=== PATIENT | female | born 1935 | race Caucasian/White ===

== ENCOUNTER → 2016-11-07 | Outpatient (CLI) | payer MEDICARE, OTHER ==
[~2016-11-07] MED LIST: AMBIEN 5MG TABLE5 MG PO; ASPIRIN 32325 MG/TAB PO; ASPIRIN E.C. 8181 MG PO; AVALOX PO; BETAXOLOL HCL 55 ML OP; CALCIUM 600600 M2 PO; CARAFATE 1GM1 G PO; CENTRUM SILVER1 CTB PO; COQ10150 MG PO; DARVOCET N 101 UDTAB PO; GLUCOSAMINE & C1 TER PO; IMDUR30 MG PO; METOPROLOL TART50 MG PO; MIRTAZAPINE7.5 MG PO; MOTRIN 200200 MG/TAB PO; NORVASC2.5 MG PO; PLAVIX 75MG TAB75 MG PO; PRAVACHOL10 MG PO; PREMARIN 0.60.625 M1 PO; PREMARIN0.45 MG PO; PRINZIDE 12.5 M1 TA1 PO; PROBIOTIC-SUNMARK; PROTONIX 40MG T40 MG PO; REFRESH TEARS 330 ML OP; SINGULAIR10 MG PO; SPIRIVA18 MCG IH; THE MEDICINE S200 M2 PO; TRAVATAN Z 2.52.5 ML OP; TYLENOL 8 HR PO; VENTOLIN0.09 MG IH; VERAPAMIL HCL180 MG PO; VIBRAMYCININJ PO; VITAMIN C500 MG PO; VITAMIN D1000 IU PO; XALATAN EYE DROPS OD; XARELTO15 MG PO; ZYRTEC10 MG PO; [UNRECOGNIZED DRUG - OTHER] PO
== END ==
LOC: COL.RAD 09:37
DX: L03.115 Cellulitis of right lower limb (principal)
CPT/HCPCS: A9503

== ENCOUNTER 2017-02-14 17:02 | Inpatient (IN) | payer MEDICARE, OTHER ==
[~2017-02-14] VITALS: Ht 165.1 cm; Wt 63.3 kg
[2017-02-14 17:25] LABS: ARTERIAL BLD GAS O2 SATURATION 98.7 % (92-100); ARTERIAL BLD GAS TCO2 CT 26.7; ARTERIAL BLOOD GAS BASE EXCESS -0.1 (-2-2); ARTERIAL BLOOD GAS HCO3 25.3 meq/L (22-26); ARTERIAL BLOOD GAS PHT 7.38 C (7.35-7.45); ARTERIAL BLOOD GAS PO2 170.9 mmHg (80-100); ARTERIAL BLOOD GAS PO2T 170.9 (80-100); ARTERIAL BLOOD GAS pH 7.38 (7.35-7.45); OXYHEMOGLOBIN 97.4 %
[2017-02-14 17:26] LABS: ALLEN TEST YES; ALLENS TEST RESULT PASS; ATS? YES
[2017-02-14 17:28] LABS: BASO # 0.1 (0.0-0.2); BASO % 0.6 % (0.0-2.0); EOS % 0.1 % (0-4.0); GRAN # 8.9 (1.4-6.5); GRAN % 81.9 % (42.2-75.2); HEMATOCRIT 40.9 % (37.0-47.0); HEMOGLOBIN 13.7 g/dl (12.5-16.0); LYMPH # 0.7 (1.2-3.4); LYMPH % 6.4 % (20.0-51.0); MEAN CELL VOLUME 93 fl (80.0-100.0); MEAN CORPUSCULAR HEMOGLOBIN 31 pg (27.0-31.0); MEAN CORPUSCULAR HGB CONC 34 g/dl (33.0-37.0); MEAN PLATELET VOLUME 9.8 fl (7.4-10.4); MONO # 1.1 (0.1-0.6); MONO % 10.1 % (1.7-9.3); PLATELET COUNT 274 K/mm3 (130-400); WHITE BLOOD COUNT 10.9 K/mm3 (4.8-10.8)
[2017-02-14 17:45] LABS: ADJUSTED CALCIUM 8.5 mg/dL (8.4-10.2); ALBUMIN 5.1 gm/dL (3.5-5.0); BILIRUBIN,TOTAL 0.7 mg/dL (0.0-1.0); CALCIUM 9.4 mg/dL (8.4-10.2); CREATININE, serum 0.6 mg/dL (0.52-1.25); POTASSIUM 4.3 mmol/L (3.4-5.0); TOTAL PROTEIN 8.2 gm/dL (6.4-8.2)
[2017-02-14 18:00] LABS: COLLECTION METHOD CLEAN CATCH
[2017-02-14 18:04] LABS: TROPONIN-I 0.131 ng/mL (0.000-0.034)
[2017-02-14 18:07] LABS: PH 6 (5-8); SQUAMOUS EPITHELIAL 0-2 /hpf; URINE APPEARANCE Clear; URINE BACTERIA None Seen /hpf; URINE BILIRUBIN Negative (NEGATIVE); URINE BLOOD Negative (NEGATIVE); URINE COLOR Yellow; URINE GLUCOSE Negative (NEGATIVE); URINE KETONE Trace (NEGATIVE); URINE LEUKOCYTE ESTERASE Negative (NEGATIVE); URINE PROTEIN(semi-quant) 3+ (NEGATIVE); URINE UROBILINOGEN Negative (NEGATIVE); URINE WBC 0-2 /hpf
[2017-02-14] MEDS ORDERED: TRAVATAN Z 2.52.5 ML OU (18:10)
[2017-02-14] MEDS ORDERED: IMDUR 30MG30 MG/TAB PO (18:11)
[2017-02-14] MEDS ORDERED: PROCARDIA20 MG PO (18:16)
[2017-02-14] MEDS ORDERED: 00186-0372-20 IH (18:20)
[2017-02-14] MEDS ORDERED: TAMIFLU 75MG75 MG PO (18:21)
[2017-02-14] MEDS ORDERED: ZITHROMAX Z PA250 MG PO (18:21)
[2017-02-14 20:42] VITALS: BP 152/51; PULSE 99; TEMP 98.1
[2017-02-15] VITALS (8 sets, daily range): BP systolic 110–188; BP diastolic 48–96; PULSE 78–95; TEMP 97.7–99.2
[2017-02-15 07:12] LABS: BASO % 0.3 % (0.0-2.0); GRAN # 6.3 (1.4-6.5); GRAN % 89.7 % (42.2-75.2); LYMPH # 0.5 (1.2-3.4); LYMPH % 7.5 % (20.0-51.0); MEAN CELL VOLUME 94 fl (80.0-100.0); MEAN CORPUSCULAR HEMOGLOBIN 31 pg (27.0-31.0); MEAN CORPUSCULAR HGB CONC 32 g/dl (33.0-37.0); MEAN PLATELET VOLUME 9.9 fl (7.4-10.4); MONO # 0.1 (0.1-0.6); MONO % 1.4 % (1.7-9.3); PLATELET COUNT 218 K/mm3 (130-400); RED BLOOD COUNT 3.92 M/mm3 (4.10-5.30); WHITE BLOOD COUNT 7.1 K/mm3 (4.8-10.8)
[2017-02-15 07:21] LABS: CALCIUM 8.2 mg/dL (8.4-10.2); CREATININE, serum 0.54 mg/dL (0.52-1.25); POTASSIUM 3.7 mmol/L (3.4-5.0)
[2017-02-15] MEDS ORDERED: PROCARDIA XL 3030 MG PO (15:13)
[2017-02-16 04:30] VITALS: BP 156/64; PULSE 63; TEMP 97.7
[2017-02-16 06:53] LABS: GRAN # 4.7 (1.4-6.5); LYMPH # 0.6 (1.2-3.4); LYMPH % 9.8 % (20.0-51.0); MEAN CELL VOLUME 96 fl (80.0-100.0); MEAN CORPUSCULAR HGB CONC 33 g/dl (33.0-37.0); MEAN PLATELET VOLUME 10.1 fl (7.4-10.4); MONO # 0.8 (0.1-0.6); MONO % 12.2 % (1.7-9.3); PLATELET COUNT 201 K/mm3 (130-400); RED BLOOD COUNT 3.53 M/mm3 (4.10-5.30); WHITE BLOOD COUNT 6.1 K/mm3 (4.8-10.8)
[2017-02-16 06:56] LABS: HEMATOCRIT 33.7 % (37.0-47.0); MEAN CORPUSCULAR HEMOGLOBIN 31 pg (27.0-31.0)
[2017-02-16 07:04] LABS: CALCIUM 8.1 mg/dL (8.4-10.2); CREATININE, serum 0.53 mg/dL (0.52-1.25); MAGNESIUM 1.7 mg/dL (1.6-2.3)
[2017-02-16 07:11] LABS: POTASSIUM 3.8 mmol/L (3.4-5.0)
[2017-02-16 07:15] LABS: TROPONIN-I 0.183 ng/mL (0.000-0.034)
[2017-02-16 07:54] VITALS: BP 151/62; PULSE 93; TEMP 97.6
[2017-02-16 12:22] VITALS: BP 146/68; PULSE 82; TEMP 97.7
[2017-02-16 16:16] VITALS: BP 150/44; PULSE 79; TEMP 98.1
[2017-02-16 20:30] VITALS: BP 130/80; PULSE 88; TEMP 98.4
[2017-02-17] VITALS (7 sets, daily range): BP systolic 148–160; BP diastolic 50–70; PULSE 65–86; TEMP 97.8–98.8
[2017-02-18] VITALS (7 sets, daily range): BP systolic 126–160; BP diastolic 46–74; PULSE 66–108; TEMP 97.5–98.2
[2017-02-19 04:17] VITALS: BP 175/55; PULSE 69; TEMP 98.4
[2017-02-19 08:57] VITALS: BP 121/81; PULSE 103; TEMP 97.8
[2017-02-19 12:24] VITALS: BP 153/58; PULSE 80; TEMP 97.9
[2017-02-19 13:24] LABS: EOS % 0.7 % (0-4.0); GRAN # 3.5 (1.4-6.5); GRAN % 61.8 % (42.2-75.2); LYMPH # 1.3 (1.2-3.4); LYMPH % 23.4 % (20.0-51.0); MEAN CELL VOLUME 92 fl (80.0-100.0); MEAN CORPUSCULAR HGB CONC 34 g/dl (33.0-37.0); MONO # 0.7 (0.1-0.6); MONO % 13.2 % (1.7-9.3); PLATELET COUNT 215 K/mm3 (130-400); RED BLOOD COUNT 3.63 M/mm3 (4.10-5.30); WHITE BLOOD COUNT 5.6 K/mm3 (4.8-10.8)
[2017-02-19 13:25] LABS: HEMATOCRIT 33.2 % (37.0-47.0); HEMOGLOBIN 11.2 g/dl (12.5-16.0); MEAN CORPUSCULAR HEMOGLOBIN 31 pg (27.0-31.0)
[2017-02-19 13:35] LABS: CALCIUM 9.1 mg/dL (8.4-10.2); CREATININE, serum 0.55 mg/dL (0.52-1.25)
[2017-02-19 15:47] VITALS: BP 169/55; PULSE 72; TEMP 97.8
[2017-02-19 20:53] VITALS: BP 165/62; PULSE 85; TEMP 97.8
[2017-02-20 00:42] VITALS: BP 132/45; PULSE 62; TEMP 97.8
[2017-02-20 04:17] VITALS: BP 147/58; PULSE 72; TEMP 97.9
[2017-02-20 07:33] LABS: CALCIUM 8.8 mg/dL (8.4-10.2); CREATININE, serum 0.5 mg/dL (0.52-1.25); MAGNESIUM 1.8 mg/dL (1.6-2.3); POTASSIUM 3.6 mmol/L (3.4-5.0)
[2017-02-20 08:01] LABS: MEAN CELL VOLUME 91 fl (80.0-100.0); MEAN CORPUSCULAR HGB CONC 34 g/dl (33.0-37.0); MEAN PLATELET VOLUME 10.5 fl (7.4-10.4); PLATELET COUNT 230 K/mm3 (130-400); RED BLOOD COUNT 3.57 M/mm3 (4.10-5.30); WHITE BLOOD COUNT 4.9 K/mm3 (4.8-10.8)
[2017-02-20 08:06] LABS: HEMATOCRIT 32.5 % (37.0-47.0); MEAN CORPUSCULAR HEMOGLOBIN 31 pg (27.0-31.0)
[2017-02-20 08:07] LABS: ADD PATHOLOGY DIFF REVIEW NO
[2017-02-20 08:49] VITALS: BP 137/58; PULSE 92; TEMP 97.9
[2017-02-20 08:49] LABS: BAND 6 % (0-10); LYMPHOCYTE 22 % (20.0-51.0); METAMYELOCYTE 1 % (0-0); NEUTROPHILS 64 % (42.0-75.2); PLATELET ESTIMATE NORMAL (NORMAL); TOTAL CELLS COUNTED 100
[2017-02-20] MEDS ORDERED: NICODERM C14 MG/PATC TD (09:16)
[2017-02-20] MEDS ORDERED: IPRATROPIUM BROM3 M1 IH (09:32)
[2017-02-20] MEDS ORDERED: PROAIR HFA0.09 MG/AC IH (10:38)
== END 2017-02-20 12:00 | disposition swing bed (61) | DRG 193 ==
LOC: COL.ER 17:02 → MEDICAL 18:42
PROVIDERS: Family Medicine; Nurse Practitioner; Nurse Practitioner Family; Physician Assistant
DX: J10.1 Influenza due to other identified influenza virus with other respiratory manifestations (principal); I21.A1 Myocardial infarction type 2; J44.1 Chronic obstructive pulmonary disease with (acute) exacerbation; I10 Essential (primary) hypertension; I25.10 Atherosclerotic heart disease of native coronary artery without angina pectoris; F17.210 Nicotine dependence, cigarettes, uncomplicated
CPT/HCPCS: 99223; 99223-AI; 99232-AI; 99233-AI; 99239; J1650; J2060; J2930; J3475; J7030; J7512

== ENCOUNTER → 2017-07-30 | Outpatient (CLI) | payer MEDICARE, OTHER ==
[~2017-07-30] MED LIST changes: +00186-0372-20 IH; +IMDUR 30MG30 MG/TAB PO; +IPRATROPIUM BROM3 M1 IH; +NICODERM C14 MG/PATC TD; +PROAIR HFA0.09 MG/AC IH; +PROCARDIA XL 3030 MG PO; +PROCARDIA20 MG PO; +TAMIFLU 75MG75 MG PO; +TRAVATAN Z 2.52.5 ML OU; +ZITHROMAX Z PA250 MG PO
== END ==
LOC: COL.VAS 09:00
DX: I34.0 Nonrheumatic mitral (valve) insufficiency (principal)

== ENCOUNTER → 2018-04-11 | Outpatient (CLI) | payer MEDICARE, OTHER | LOC: COL.RAD 09:01 | DX: M86.8X7 Other osteomyelitis, ankle and foot (principal); L03.115 Cellulitis of right lower limb | CPT/HCPCS: A9503 ==

== ENCOUNTER 2018-05-16 05:30 | Day surgery (SDC) | payer MEDICARE, OTHER ==
[~2018-05-16] VITALS: Ht 160 cm; Wt 75.5 kg
[2018-05-16] VITALS (7 sets, daily range): BP systolic 129–178; BP diastolic 45–61; PULSE 56–66; TEMP 97.4–98
[~2018-05-16 05:30] MED LIST changes: -IMDUR30 MG PO; +LOPRESSOR 550 MG/TAB PO; -METOPROLOL TART50 MG PO; +ZYRTEC 10MG10 MG PO; -ZYRTEC10 MG PO
[2018-05-16] MEDS ORDERED: CALCIUM CARBON650 M2 PO (06:16)
[2018-05-16] MEDS ORDERED: TYLENOL 8 HR PO (06:16)
[2018-05-16] MEDS ORDERED: XALATAN EYE DROPS OD (06:17)
[2018-05-16] MEDS ORDERED: CATAPRES 0.1MG0.1 MG PO (06:17)
[2018-05-16] MEDS ORDERED: CYMBALTA 20MG20 MG PO (06:18)
[2018-05-16] MEDS ORDERED: ANTIVERT 25MG25 MG PO (06:18)
[2018-05-16] MEDS ORDERED: LYRICA 50MG CAP50 MG PO (06:18)
[2018-05-16] MEDS ORDERED: ROXICODONE 55 MG/TAB PO (06:19)
--- NOTE | 2018-05-16 06:40 | NUR ---
Patient to PACU for block with ZOO CARETAKER at this time.
[2018-05-16 06:44] LABS: CALCIUM 9.7 mg/dL (8.4-10.2); CREATININE, serum 0.84 mg/dL (0.52-1.25); POTASSIUM 4.4 mmol/L (3.4-5.0)
--- NOTE | 2018-05-16 08:50 | NUR ---
Pt arrived to the floor from OR. Received report from Luis with anesthesia. Pt is alert and oriented with no right ankle pain at this time. VSS and at bedside. Report given to MARVIN Guerra
--- NOTE | 2018-05-16 09:00 | NUR ---
Pt AAOx4, RASS = -1, at bedside, vascular check within normal limits bilateral toes. Pt states chronic decreased sensation in lower extremity and feet, Left extremity intact, sensation in Right lower extremity below ankle absent - will continue to monitor. Pt tolerating fluids and Jell-O without N/V. 0918: RASS=0 Call light within reach, no complaints at this time.
--- NOTE | 2018-05-16 14:30 | NUR ---
Assisted pt to the bedside commode. She was not able to keep weight off her right foot. There was some drainage that did come through the dressing and celia. Reinforced with an ABD and celia wrap. Pain medication also given at this time. No other needs, will continue to monitor.
--- NOTE | 2018-05-16 20:38 | NUR ---
Patient up in chair at bedside. Has right foot elevated on pillows, dressing to right foot dry and intact, celia wrap securing. Has SL to right hand without redness or swelling. Having pain to right foot and back, 10/04. Medicated with Oxycodone 5mg po now as well as her HS meds. Patient is to be non weight bearing on the right. Will monitor for changes.
--- NOTE | 2018-05-16 23:00 | NUR ---
Patient uses BSC, voids and assisted to bed with one and gait belt. Rt leg elevated on pillows.
[2018-05-17 00:01] VITALS: BP 130/43; BP 150/53; PULSE 52; PULSE 70; TEMP 97.9; TEMP 99.8
[2018-05-17 04:19] VITALS: BP 122/41; PULSE 55; TEMP 98.3
--- NOTE | 2018-05-17 05:30 | NUR ---
Patient was disoriented, ambulated to bathroom, voided on commode and on the floor on her own. Assisted back to bed with walker and one assist. Dressing to right foot remains dry and intact.
--- NOTE | 2018-05-17 08:20 | NUR ---
Patient called out to nurses station states pain is 9/10 to right ankle. Medications administered per orders. Patient alert and oriented x3. Shift assessment complete. Dressing to right foot is CDI. Denies further needs at this time.
[2018-05-17 08:25] VITALS: BP 131/48; PULSE 59; TEMP 97
--- NOTE | 2018-05-17 09:15 | NUR ---
Patient called out to nurses station, States pain still 9/10 with no relief from previous dose of pain meds. Administered second dose of oxycodone.
--- NOTE | 2018-05-17 10:41 | NUR ---
Contacted Maria PEREZ. Patient continues to state no pain relief after second dose of pain medication. Maria will see patient.
[2018-05-17 12:45] VITALS: BP 119/68; PULSE 63; TEMP 98.2
[2018-05-17 16:51] VITALS: BP 149/44; PULSE 95; TEMP 98
--- NOTE | 2018-05-17 17:50 | NUR ---
Patient up in chair throughout most of the day. Acewrap to RLE is CDI. Denies pain or further needs at this time. Will report off to night time nanny.
--- NOTE | 2018-05-17 19:00 | NUR ---
Patient assisted to BSC with one assist and walker. Transfers fair. Has dressing with splint to right foot, D/I. SL to right hand without redness or swelling. Remains up in chair with foot elevated.
[2018-05-17 19:58] VITALS: BP 168/74; PULSE 55; TEMP 97.7
--- NOTE | 2018-05-17 20:40 | NUR ---
Patient reports pain to right ankle 10/10. Patient squirming in chair, unable to keep right leg elevated on pillows. Medicated with [place] 7.5mg 2 tabs po now with other HS meds. Assisted to BSC, voids and back to chair at bedside. Elevated right leg on pillow. Call light within reach.
[2018-05-18] VITALS: BP 144/55; PULSE 65; TEMP 97.7
--- NOTE | 2018-05-18 00:05 | NUR ---
Medicated with Oxycodone 10mg po for pain 10/04 to rt ankle. Assisted to bed after using BSC.
[2018-05-18 04:00] VITALS: BP 130/84; PULSE 84; TEMP 98.1
--- NOTE | 2018-05-18 04:00 | NUR ---
Assisted to BSC, voids and back to bed.
--- NOTE | 2018-05-18 06:37 | NUR ---
Up in chair at bedside, takes coffee this AM for bowel regimen.
--- NOTE | 2018-05-18 07:21 | NUR ---
Report received from MARVIN Pérez. Patient woke up and spoke with this nurse, but fell asleep while talking. Call light in place.
[2018-05-18 07:58] VITALS: BP 131/45; PULSE 48; TEMP 97.5
--- NOTE | 2018-05-18 09:41 | NUR ---
Patient sitting in recliner upon assessment. Awake and alert. Patient c/o pain to right ankle. Wants pain medication with breakfast and her morning meds. No further needs.
--- NOTE | 2018-05-18 12:48 | NUR ---
Patient discharge instructions given at 1100 this morning. She stated she wasn't feeling well and that she was dizzy and nauseous. Patient assisted into the restroom. Oxygen level at 92% on RA. Full set of vitals can be found in patient chart. Patient assisted back to her chair and continued to complain of nausea. [place], sprite, and crackers given. Stated no relief and that she didn't want to go home "feeling like this." This nurse let her rest in the recliner until 1225 when she called to use the restroom. Patient assisted to the commode, then stated she still didn't feel well. This nurse obtained a wheelchair and patient was compliant with being discharged. Patient assisted to personal vehicle with wheelchair and personal belongings with spouse and surgical staff at 1245.
== END 2018-05-18 12:52 | disposition home or self-care (01) ==
LOC: SDCO 05:30 → SURG 08:50 → SDCO 05-18 12:52
PROVIDERS: Nurse Anesthetist, Certified Registered
DX: L97.519 Non-pressure chronic ulcer of other part of right foot with unspecified severity (principal); I73.9 Peripheral vascular disease, unspecified; M19.90 Unspecified osteoarthritis, unspecified site; J44.9 Chronic obstructive pulmonary disease, unspecified; I25.10 Atherosclerotic heart disease of native coronary artery without angina pectoris; E78.00 Pure hypercholesterolemia, unspecified; G43.909 Migraine, unspecified, not intractable, without status migrainosus; Z88.2 Allergy status to sulfonamides; Z88.8 Allergy status to other drugs, medicaments and biological substances; Z91.030 Bee allergy status; Z85.828 Personal history of other malignant neoplasm of skin; Z90.710 Acquired absence of both cervix and uterus; Z87.891 Personal history of nicotine dependence; Z82.49 Family history of ischemic heart disease and other diseases of the circulatory system; Z82.61 Family history of arthritis; Z80.9 Family history of malignant neoplasm, unspecified; Z88.1 Allergy status to other antibiotic agents; Z88.5 Allergy status to narcotic agent; Z88.6 Allergy status to analgesic agent
CPT/HCPCS: OP; A9284; J0690; J2250; J2405; J2704; J3010; J7120

== ENCOUNTER → 2018-06-17 | Outpatient (REF) ==
[~2018-06-17] MED LIST changes: +ANTIVERT 25MG25 MG PO; +BENADRYL25 M2 PO; +CALCIUM CARBON650 M2 PO; +CATAPRES 0.1MG0.1 MG PO; +CYMBALTA 20MG20 MG PO; +GLUCOSAMINE & C1 CA2 PO; +HYLAND; +LASIX 20MG TABL20 MG PO; +LYRICA 50MG CAP50 MG PO; +MUCINEX DM 30 M1 TE1 PO; +NEURONTIN300 MG/CAP PO; +NOVOLOG FLEX100 U/ML SQ; +OSCAL 500 TAB500 MG PO; +PREDNISONE20 MG PO; +ROXICODONE 55 MG/TAB PO; +RT ALBUTER2.5 MG/0.5 IH; +TOPROL XL 50MG50 MG PO; +TOPROL XL100 MG PO; +TYLENOL 325MG325 MG PO; +ZESTRIL40 MG PO; +ZITHROMAX 250M250 MG PO
== END ==
LOC: ZLAB.WCH 09:54
DX: Z01.89 Encounter for other specified special examinations (principal)

== ENCOUNTER → 2018-06-21 | Outpatient (REF) | LOC: ZLAB.WCH 12:04 | DX: Z01.89 Encounter for other specified special examinations (principal) ==

== ENCOUNTER 2018-07-02 20:01 | Inpatient (IN) | payer MEDICARE, OTHER ==
[~2018-07-02] VITALS: Ht 162.6 cm; Wt 73.4 kg
[~2018-07-02 20:01] MED LIST changes: -GLUCOPHAGE500 MG/TAB PO; -INCRUSE EL62.5 MCG/A IH; -LASIX 40MG TABL40 MG PO; -LEVEMIR100 U/ML SQ; -MUCUS RELIEF400 M1 PO; -PROBIOTIC GOLD1 EACH PO; -PROCTOCORT1% TOP; -THERAGRAN TAB1 UDTAB PO; -VISINE TEARS 0.30 ML OP; -XALATAN EYE DROPS OP; -ZOFRAN 4MG T4 MG/TAB PO; -calcium carb/vit d3
--- NOTE | 2018-07-02 21:40 | NUR ---
pt arrived to unit. oriented to room and staff. VSS. IV to left wrist, flushes, no redness or swelling. A+Ox4 but drowsy falling asleep during conversations. lungs clear. AFIB on tele. no pain. med rec complete. Zayra OXYGEN THERAPIST- notified about AFIB, med rec, and hypotention. no needs at this time. call light in reach
[2018-07-02 21:51] LABS: ALBUMIN 2.8 gm/dL (3.5-5.0); BILIRUBIN,TOTAL 0.2 mg/dL (0.0-1.0); CALCIUM 8.8 mg/dL (8.4-10.2); MAGNESIUM 1.3 mg/dL (1.6-2.3); POTASSIUM 3.6 mmol/L (3.4-5.0); TOTAL PROTEIN 5.3 gm/dL (6.4-8.2)
[2018-07-02] MEDS ORDERED: LEVEMIR100 U/ML SQ (22:02)
[2018-07-02] MEDS ORDERED: LASIX 40MG TABL40 MG PO (22:05)
[2018-07-02] MEDS ORDERED: PROTONIX 40MG T40 MG PO (22:19)
[2018-07-02] MEDS ORDERED: THERAGRAN TAB1 UDTAB PO (22:21)
[2018-07-02] MEDS ORDERED: ZOFRAN 4MG T4 MG/TAB PO (22:30)
[2018-07-02] MEDS ORDERED: PROBIOTIC GOLD1 EACH PO (22:34)
[2018-07-02] MEDS ORDERED: PROCTOCORT1% TOP (22:36)
[2018-07-02] MEDS ORDERED: GLUCOPHAGE500 MG/TAB PO (22:37)
[2018-07-02] MEDS ORDERED: INCRUSE EL62.5 MCG/A IH (22:38)
[2018-07-02] MEDS ORDERED: MUCUS RELIEF400 M1 PO (22:39)
[2018-07-02] MEDS ORDERED: calcium carb/vit d3 (22:42)
[2018-07-02] MEDS ORDERED: XALATAN EYE DROPS OP (22:43)
[2018-07-02] MEDS ORDERED: VISINE TEARS 0.30 ML OP ×2 (22:44→22:45)
[2018-07-02 22:57] VITALS: BP 116/44; PULSE 64; TEMP 97.3
--- NOTE | 2018-07-02 23:00 | NUR ---
thomas secure to leg, draining freely, no kinks. O2 sat 99% at 2L, this nurse decreased O2 to 1.5L- O2 sat 95%. no pain. no needs at this time. call light in reach
[2018-07-03 01:02] VITALS: BP 117/37; PULSE 59
[2018-07-03 04:27] VITALS: BP 114/42; PULSE 71; TEMP 97.9
[2018-07-03 04:35] LABS: ARTERIAL BLD GAS O2 SATURATION 97.4 % (92-100); ARTERIAL BLD GAS TCO2 CT 22.3; ARTERIAL BLOOD GAS BASE EXCESS -0.2 (-2-2); ARTERIAL BLOOD GAS HCO3 21.5 meq/L (22-26); ARTERIAL BLOOD GAS PCO2 26.3 mmHg (35-45); ARTERIAL BLOOD GAS PO2 107.9 mmHg (80-100); ARTERIAL BLOOD GAS pH 7.53 (7.35-7.45)
--- NOTE | 2018-07-03 05:23 | NUR ---
pt reports no pain during night. tele on. blood gasses drawn this AM. pt takes pills with pudding. [place] drains freely, no kinks, secured to leg. Pt on 1.5 L O2 sat >93%. pt has bruising on bilateral arms. no edema noted. IV fluids DC. no needs at this time. call light in reach, bed alarm on .
--- NOTE | 2018-07-03 05:27 | NUR ---
pt nuero check unchanged througout night. O2 sats >94% on 1.5 L via NC. no pain during night. no SOA. no needs. call light in reach. bed alarm on. fall precautions in place/
[2018-07-03 06:30] LABS: MEAN CELL VOLUME 93 fl (80.0-100.0); MEAN CORPUSCULAR HGB CONC 32 g/dl (33.0-37.0); MEAN PLATELET VOLUME 10.4 fl (7.4-10.4); PLATELET COUNT 372 K/mm3 (130-400); RED BLOOD COUNT 2.86 M/mm3 (4.10-5.30); REDCELL DISTRIBUTION WIDTH-CV 14.6 % (11.5-14.5)
[2018-07-03 06:34] LABS: HEMATOCRIT 26.5 % (37.0-47.0); HEMOGLOBIN 8.4 g/dl (12.5-16.0); MEAN CORPUSCULAR HEMOGLOBIN 29 pg (27.0-31.0)
[2018-07-03 06:40] LABS: CREATININE, serum 0.91 (0.52-1.25); MAGNESIUM 1.7 mg/dL (1.6-2.3); POTASSIUM 3.2 mmol/L (3.4-5.0)
[2018-07-03 06:51] LABS: TROPONIN-I 0.014 ng/mL (0.000-0.035)
[2018-07-03 07:12] LABS: BAND 4 % (0-10); EOSINOPHIL 1 % (0-4); LYMPHOCYTE 10 % (20.0-51.0); MYELOCYTE 2 % (0-0); NEUTROPHILS 78 % (42.0-75.2); PLATELET ESTIMATE NORMAL (NORMAL)
--- NOTE | 2018-07-03 07:12 | NUR ---
report given to MARVIN Sanders. pt reports no needs
[2018-07-03 07:13] LABS: HYPOCHROMIA 1+; POLYCHROMASIA 1+
[2018-07-03 08:31] VITALS: BP 101/42; PULSE 74; TEMP 97.6
--- NOTE | 2018-07-03 10:00 | NUR ---
Patient assessment complete. Left lung cedillo clear, right lung cedillo diminished. Patient denies SOB, currently on 1 1/2 L NC. Denies dizziness, headache, chest pain, N/V. States she has numbness in feet. Patient has right big toe amputation. Radial pulses strong bilaterally. Heart RRR. Patient is A&O and very chatty. Patient taking pills with pudding. Denies other needs at this time. Call light within reach.
--- NOTE | 2018-07-03 11:33 | NUR ---
First visit from the ingot supervisor. prayed with patient and patient requested a bible. Wallpaper Inspector delivered a bible to her. No other needs right now.
--- NOTE | 2018-07-03 12:14 | NUR ---
RAFAEL met with the patient and patient's , Peter, to discuss discharge plan. The patient was transferred from [facility]. She states she has been there for around a month and that she was getting ready to discharge back home and that they were going to arrange home health services for her. The patient lives in [place] with her . She reports that she was independent with ADLs prior to hospitalization and has 2 canes, 2 walkers, a transport chair, shower chair, and grab bars at home. The patient's PCP is Dr. Amadou Delaney and she receives her medications at the [facility] or [facility]. She reports no difficulties obtaining her meds. The patient does not have advanced directives in EMR, but she states that she does have them completed. The patient reports that she is unsure if she will be ready to discharge back home upon discharge or that she will need to return back to [facility]. PT/OT/ST have been ordered. RAFAEL attempted to contact Aaliyah at [facility] to find out if the patient would fall within her 30 day window. RAFAEL left a voicemail and will continue to follow.
[2018-07-03 12:43] VITALS: BP 126/69; PULSE 69; TEMP 98.7
[2018-07-03 16:05] VITALS: BP 119/36; PULSE 100; TEMP 97.8
--- NOTE | 2018-07-03 19:42 | NUR ---
Patient has had uneventful day. Patient has been A&O today. Patient has been up to the chair for most of day, chatty. No needs at this time. Report given to MARVIN Maher.
[2018-07-03 20:44] VITALS: BP 117/40; PULSE 86; TEMP 97.4
--- NOTE | 2018-07-03 21:15 | NUR ---
Completed assessment and medication administration; PT tolerated call cares and medications well with use of chocolate pudding; PT is A&Ox4, BS active x4, lung CTAB with bilateral diminished bases, 2L O2 at HS to maintain Sats above 90%, HRRR, indwelling catheter in place draining clear yellow urine to dependent collection bag; PRN Tylenol 650mg provided to reported pain at HS; No further assessed or reported concerns at time of exit; PT assisted to comfortable position in bed with personal items and call light within reach; Will continue to monitor. CDA
[2018-07-04] VITALS (7 sets, daily range): BP systolic 102–148; BP diastolic 48–78; PULSE 55–93; TEMP 97.5–98.3
--- NOTE | 2018-07-04 02:41 | NUR ---
PT unable to rest; New order for Melatonin 3mg PO QD at HS for insomnia; PT continues to read personal book to assist with insomnia; No further assessed or reported concerns at time of rounds/medications; PT assisted to comfortable position in bed with personal items and call light within reach; Will continue to monitor. CDA
--- NOTE | 2018-07-04 06:50 | NUR ---
Report given to MARVIN Richardson; No significant changes or concerns at time of shift change. CDA
[2018-07-04 07:21] LABS: MEAN CELL VOLUME 92 fl (80.0-100.0); MEAN CORPUSCULAR HGB CONC 32 g/dl (33.0-37.0); MEAN PLATELET VOLUME 10.3 fl (7.4-10.4); PLATELET COUNT 351 K/mm3 (130-400); RED BLOOD COUNT 2.96 M/mm3 (4.10-5.30); REDCELL DISTRIBUTION WIDTH-CV 14.5 % (11.5-14.5)
[2018-07-04 07:24] LABS: HEMATOCRIT 27.2 % (37.0-47.0); HEMOGLOBIN 8.6 g/dl (12.5-16.0); MEAN CORPUSCULAR HEMOGLOBIN 29 pg (27.0-31.0)
[2018-07-04 07:37] LABS: CALCIUM 9.4 mg/dL (8.4-10.2); CREATININE, serum 0.88 (0.52-1.25); POTASSIUM 3.7 mmol/L (3.4-5.0)
[2018-07-04 08:31] LABS: BAND 7 % (0-10); EOSINOPHIL 2 % (0-4); LYMPHOCYTE 21 % (20.0-51.0); MYELOCYTE 4 % (0-0); NEUTROPHILS 63 % (42.0-75.2); PLATELET ESTIMATE NORMAL (NORMAL)
--- NOTE | 2018-07-04 10:57 | NUR ---
RAFAEL attended clinical rounds. The patient is to possibly discharge tomorrow, 07/05. RAFAEL then followed up with the patient to review discharge plan. The patient would like to return back to [facility] Bed. RAFAEL presented and explained the patient choice form. The patient verbalized understanding, signed, and she was provided a copy. RAFAEL was informed that [facility]'s provider MICHAEL Washington accepts the patient back. RAFAEL informed territory sales professional, Sharon, of the patient's possible discharge tomorrow. Sharon plans to update the [facility] Team today. The patient's reports that he can provide transportation for the patient tomorrow. SW to continue to follow.
--- NOTE | 2018-07-04 17:00 | NUR ---
Removed thomas catheter, no discharge noted. Denies any pain or burning at this time.
--- NOTE | 2018-07-04 17:30 | NUR ---
Pt moved to room 359 for possible diptheria. Pt has all belognings in room, denies any needs. Breathing even and unlabored. Denies any pain. Call light in reach.
--- NOTE | 2018-07-04 22:15 | NUR ---
Completed assessment and medication administration; PT able to tolerate all cares and medication with use of cholocate pudding; No further assessed or verbalized concerns at time of exit; PT A&Ox4, BS active x4, Droplet ISO continues for positive sputum, IRHRR, AMB with walker to bathroom and within room; PT assisted to comfortable position in bed with call light and personal items within reach; Will continue to monitor. CDA
--- NOTE | 2018-07-05 03:20 | NUR ---
PT resting intermittently in bed; No further assessed or verbalized concerns at time of rounds; PT able to return to a comfortable position in bed with personal items and call light within reach; Will continue to monitor. CDA
[2018-07-05 04:16] VITALS: BP 109/56; PULSE 57; TEMP 97.6
--- NOTE | 2018-07-05 06:43 | NUR ---
Lab declined to process C-Diff specimen send down; stating that it was no too solid for C-Diff testing. All other testing will be completed. CDA
--- NOTE | 2018-07-05 07:18 | NUR ---
Report given to MARVIN Powell; No significant changes or concerns at time of shift change. CDA
[2018-07-05 07:38] VITALS: BP 115/49; PULSE 71; TEMP 98.2
[2018-07-05 07:48] LABS: MEAN CELL VOLUME 92 fl (80.0-100.0); MEAN CORPUSCULAR HGB CONC 31 g/dl (33.0-37.0); MEAN PLATELET VOLUME 10.3 fl (7.4-10.4); PLATELET COUNT 361 K/mm3 (130-400); RED BLOOD COUNT 3.09 M/mm3 (4.10-5.30); REDCELL DISTRIBUTION WIDTH-CV 14.6 % (11.5-14.5)
[2018-07-05 07:50] LABS: HEMATOCRIT 28.3 % (37.0-47.0); HEMOGLOBIN 8.9 g/dl (12.5-16.0); MEAN CORPUSCULAR HEMOGLOBIN 29 pg (27.0-31.0)
[2018-07-05 07:53] LABS: CALCIUM 9.2 mg/dL (8.4-10.2); CREATININE, serum 1.12 (0.52-1.25)
[2018-07-05 08:28] LABS: BAND 20 % (0-10); LYMPHOCYTE 18 % (20.0-51.0); METAMYELOCYTE 3 % (0-0); NEUTROPHILS 51 % (42.0-75.2); PLATELET ESTIMATE NORMAL (NORMAL)
[2018-07-05 11:26] VITALS: BP 105/39; PULSE 65; TEMP 97.9
[2018-07-05 15:46] VITALS: BP 107/40; PULSE 80; TEMP 98
[2018-07-05 20:22] VITALS: BP 116/45; PULSE 77; TEMP 97.9
[2018-07-06] VITALS (7 sets, daily range): BP systolic 100–139; BP diastolic 39–54; PULSE 68–103; TEMP 97.9–100.3
--- NOTE | 2018-07-06 01:37 | NUR ---
Completed assessment and medication administration; PT tolerated all cares; PT continues droplet contact; PT A&Ox4, BS active x4, lungs CTAB with bilateral diminished bases; No further assessed or verbalized concerns or complaints at time of exit; PT able to return to a comfortable position in bed with personal items and call light within reach; IV site changed to 22G at RW; Will continue to monitor. CDA
--- NOTE | 2018-07-06 03:24 | NUR ---
PT resting well in bed intermittently; New IV placed to RW area; No further assessed or verbalized concerns at time of rounds; PT resting in comfortable position in bed with personal items and call light within reach; Will continue to monitor. CDA
--- NOTE | 2018-07-06 06:59 | NUR ---
Report given to MARVIN Powell; No significant changes or concerns at time of shift change. CDA
[2018-07-06 07:13] LABS: MEAN CELL VOLUME 91 fl (80.0-100.0); MEAN CORPUSCULAR HGB CONC 32 g/dl (33.0-37.0); MEAN PLATELET VOLUME 10.2 fl (7.4-10.4); PLATELET COUNT 373 K/mm3 (130-400); RED BLOOD COUNT 3.29 M/mm3 (4.10-5.30); REDCELL DISTRIBUTION WIDTH-CV 14.6 % (11.5-14.5)
[2018-07-06 07:14] LABS: HEMOGLOBIN 9.5 g/dl (12.5-16.0); MEAN CORPUSCULAR HEMOGLOBIN 29 pg (27.0-31.0)
[2018-07-06 07:22] LABS: CALCIUM 9.1 mg/dL (8.4-10.2); CREATININE, serum 1.05 (0.52-1.25); MAGNESIUM 1.8 mg/dL (1.6-2.3); POTASSIUM 3.9 mmol/L (3.4-5.0)
[2018-07-06 07:30] LABS: BAND 12 % (0-10); LYMPHOCYTE 16 % (20.0-51.0); METAMYELOCYTE 3 % (0-0); NEUTROPHILS 63 % (42.0-75.2); PLATELET ESTIMATE NORMAL (NORMAL)
--- NOTE | 2018-07-06 14:25 | NUR ---
Pt at bedside concerning pt's ambulation ability has decreased d/t emotional and physical fatigue from long string of hospitalizations, and the addition of oxygen tubing and IV fluid tubing. Pt experienced urinary frequency before this RN entered room to assist pt to commode. Walker utilized, pt slow and steady on ambulation. Pt did experience dyspnea with exertion during ambulation, spot SpO2 check was 93% while on room air during her transfer to and from commode. also expresses concern for pt's independence stating "she needs quicker help getting to the bathroom". Diahrrea has stopped
--- NOTE | 2018-07-06 21:00 | NUR ---
Patient resting in bed- helped to restroom 1:1 with gait belt and walker. Assessment copmleted- some dyspnea with exertion. Denies pain. Temp of 100.3, given tylenol. IVF infusing. No further needs at this time.
[2018-07-07 03:02] VITALS: BP 117/58; PULSE 73; TEMP 98.4
--- NOTE | 2018-07-07 04:54 | NUR ---
Pt slept on/off last night. Temperature last night, came downa fter tylenol administration. 1:1 assist to restroom several times. No needs at this time.
--- NOTE | 2018-07-07 06:52 | NUR ---
REPORT GIVEN TO MARVIN ACUNA
[2018-07-07 07:50] LABS: MEAN CELL VOLUME 92 fl (80.0-100.0); MEAN CORPUSCULAR HGB CONC 31 g/dl (33.0-37.0); PLATELET COUNT 299 K/mm3 (130-400); RED BLOOD COUNT 2.92 M/mm3 (4.10-5.30); REDCELL DISTRIBUTION WIDTH-CV 14.7 % (11.5-14.5)
[2018-07-07 07:55] LABS: HEMATOCRIT 26.8 % (37.0-47.0); HEMOGLOBIN 8.3 g/dl (12.5-16.0); MEAN CORPUSCULAR HEMOGLOBIN 28 pg (27.0-31.0)
[2018-07-07 08:05] LABS: CALCIUM 8.1 mg/dL (8.4-10.2); CREATININE, serum 0.78 (0.52-1.25)
[2018-07-07 08:27] VITALS: BP 114/73; PULSE 96; TEMP 98.8
--- NOTE | 2018-07-07 08:30 | NUR ---
Assessment complete. Pt is AXO X3, denies having any pain at this time. Breathing is even but labored after using the restroom. Tele on. RW infusing, remains free of complications, and is CDI. Pt is sitting up in the chair eating her breakfast at this time and she denies further needs. Call light within reach, will continue to monitor.
[2018-07-07 08:44] LABS: BAND 3 % (0-10); BASOPHIL 1 % (0-2); LYMPHOCYTE 13 % (20.0-51.0); MYELOCYTE 1 % (0-0); NEUTROPHILS 77 % (42.0-75.2); PLATELET ESTIMATE NORMAL (NORMAL); POLYCHROMASIA 1+
--- NOTE | 2018-07-07 10:36 | NUR ---
SW attended clinical rounds. The hospitalist and body art technician are recommending LTAC at [facility]. SW met with the patient and the patient appeared discouraged with her prognosis, but was agreeable to [facility]. RAFAEL provided support. RAFAEL then contacted and faxed a referral to Surinder at [facility]. SW awaiting their screening.
[2018-07-07 12:32] VITALS: BP 92/40; PULSE 88; TEMP 98.1
[2018-07-07 12:51] VITALS: BP 98/47; PULSE 80; TEMP 98.2
--- NOTE | 2018-07-07 13:17 | NUR ---
Surinder, at [facility], reports that the patient does qualify for [facility] and that they could accept her tomorrow if ready to discharge. Surinder reports that he will come visit the patient tomorrow morning, 07/08. RAFAEL met with the patient to inform. The patient requested that SW contact her to also inform. RAFAEL contacted and informed the patient's , Peter. Peter requested a further update from the patient's PA or physician. RAFAEL informed the patient's PA. RAFAEL to continue to follow.
[2018-07-07 16:26] VITALS: BP 98/44; PULSE 87; TEMP 97.7
--- NOTE | 2018-07-07 18:46 | NUR ---
Pt has been resting on and off throughout the day. She has remained free of pain. Family members have been at the bedside; all questions answered. Pt is sitting up in the chair finishing her dinner at this time and she denies further needs. Call light within reach. Report given to MARVIN Moreau.
--- NOTE | 2018-07-07 19:47 | NUR ---
Patient resting in recliner, evening medications given, assessment completed. Dyspnea upon exertion, returned to chair after ambublating to restroom. No further needs at this time.
[2018-07-07 21:16] VITALS: BP 109/47; PULSE 79; TEMP 98.8
[2018-07-08 00:42] VITALS: BP 107/54; PULSE 75; TEMP 98.3
--- NOTE | 2018-07-08 01:56 | NUR ---
Call from telemetry, pt converted to normal sinus rhythm
[2018-07-08 03:17] VITALS: BP 99/70; PULSE 80; TEMP 97.5
--- NOTE | 2018-07-08 04:54 | NUR ---
Pt slept on/off last night. Up to use restroom several times= dyspneic upon exertion. Soft BP's SBP 90's to 100's, afebrile. Converted to NSR at about 0200 this am. No needs at this time.
[2018-07-08 06:28] LABS: MEAN CELL VOLUME 91 fl (80.0-100.0); MEAN CORPUSCULAR HGB CONC 31 g/dl (33.0-37.0); MEAN PLATELET VOLUME 10.2 fl (7.4-10.4); PLATELET COUNT 273 K/mm3 (130-400); RED BLOOD COUNT 2.76 M/mm3 (4.10-5.30); REDCELL DISTRIBUTION WIDTH-CV 14.6 % (11.5-14.5)
[2018-07-08 06:29] LABS: HEMOGLOBIN 7.8 g/dl (12.5-16.0); MEAN CORPUSCULAR HEMOGLOBIN 28 pg (27.0-31.0)
[2018-07-08 06:39] LABS: CALCIUM 8.4 mg/dL (8.4-10.2); CREATININE, serum 0.87 (0.52-1.25); POTASSIUM 3.4 mmol/L (3.4-5.0)
--- NOTE | 2018-07-08 07:11 | NUR ---
report given to mary jane aguirre
[2018-07-08 08:00] VITALS: BP 124/42; PULSE 74; TEMP 97.5
[2018-07-08 08:01] LABS: BAND 1 % (0-10); EOSINOPHIL 1 % (0-4); HYPOCHROMIA 1+; LYMPHOCYTE 12 % (20.0-51.0); NEUTROPHILS 81 % (42.0-75.2); PLATELET ESTIMATE NORMAL (NORMAL)
[2018-07-08 08:02] LABS: POLYCHROMASIA 1+
--- NOTE | 2018-07-08 09:15 | NUR ---
Assessment complete. Patient sitting in chair upon entry. Patient on 3L NC. States she has SOB on exertion. Patient occasionally pursed lip breathing. Denies chest pain, dizziness, N/V, palpitations. Lung sounds diminished throughout. Radial pulses strong bilaterally. Bowel sounds active. BLE edema 2+. VSS. Pressures overnight have been systolics high 90s-low 100s. BP meds changed by physician. Denies other needs at this time.
[2018-07-08] MEDS ORDERED: ERYTHROCIN STE500 MG PO (11:38)
[2018-07-08] MEDS ORDERED: TYLENOL 325MG325 MG PO ×2 (11:39→11:44)
[2018-07-08] MEDS ORDERED: NOVOLOG 100U100 U/M1 SQ (11:40)
[2018-07-08] MEDS ORDERED: MELAT3MGTAB PO (11:41)
[2018-07-08] MEDS ORDERED: PRINIVIL20 MG PO (11:42)
[2018-07-08 11:59] VITALS: BP 133/42; PULSE 94; TEMP 97.6
--- NOTE | 2018-07-08 13:30 | NUR ---
Patient sitting in chair. Denies pain. Assisted to bedside commode and gown change. Patient gets very SOB on exertion. patient on 3L NC. O2 sats 96%. Denies other needs at this time.
--- NOTE | 2018-07-08 14:03 | NUR ---
RAFAEL and Surinder with [facility] met with the patient and patient's to discuss [facility]. The patient appeared apprehensive about going to [facility]. After the patient had further discussion with her , they have decided to pursue [facility]. The patient is to discharge today, 07/08, to [facility]. Transportation was set for around 1415, via [facility]. RAFAEL informed the patient, patient's , nurse, and Surinder at [facility]. They were all in agreeance. RAFAEL also presented and explained the IM form to the patient. The patient verbalized understanding, signed, and she was provided a copy. No additional needs at this time.
--- NOTE | 2018-07-08 14:30 | NUR ---
Patient being discharged to [facility]. EMS here to transport patient. LFA IV discontinued. Catheter tip intact, no complications. This nurse will call report. Denies other needs.
[2018-07-08 14:38] VITALS: BP 133/42; PULSE 94; TEMP 97.6
== END 2018-07-08 14:30 | DRG 871 ==
LOC: MEDICAL 20:01
PROVIDERS: Internal Medicine; Nurse Practitioner; Physician Assistant; ADMIT Hospitalist
DX: A41.9 Sepsis, unspecified organism (principal); J15.9 Unspecified bacterial pneumonia; E87.3 Alkalosis; J44.0 Chronic obstructive pulmonary disease with (acute) lower respiratory infection; J44.1 Chronic obstructive pulmonary disease with (acute) exacerbation; K52.1 Toxic gastroenteritis and colitis; I25.10 Atherosclerotic heart disease of native coronary artery without angina pectoris; Y95 Nosocomial condition; I10 Essential (primary) hypertension; E11.51 Type 2 diabetes mellitus with diabetic peripheral angiopathy without gangrene; E11.42 Type 2 diabetes mellitus with diabetic polyneuropathy; I25.2 Old myocardial infarction; I48.0 Paroxysmal atrial fibrillation; I95.9 Hypotension, unspecified; E83.52 Hypercalcemia; R91.1 Solitary pulmonary nodule; T36.95XA Adverse effect of unspecified systemic antibiotic, initial encounter; E87.6 Hypokalemia; E83.42 Hypomagnesemia; I27.20 Pulmonary hypertension, unspecified; E78.5 Hyperlipidemia, unspecified; R53.81 Other malaise; Z95.5 Presence of coronary angioplasty implant and graft; Z79.82 Long term (current) use of aspirin; Z79.4 Long term (current) use of insulin; Z79.891 Long term (current) use of opiate analgesic; Z79.02 Long term (current) use of antithrombotics/antiplatelets; Z88.1 Allergy status to other antibiotic agents; Z88.5 Allergy status to narcotic agent; Z88.6 Allergy status to analgesic agent; Z89.411 Acquired absence of right great toe; Z89.421 Acquired absence of other right toe(s); Z90.710 Acquired absence of both cervix and uterus; Z87.891 Personal history of nicotine dependence
CPT/HCPCS: 99222-AI; 99231-AI; 99232-AI; 99233-AI; 99239; A4216; A9284; J1644; J1815; J2185; J3475; J7030; J7512

== ENCOUNTER → 2018-07-02 | Outpatient (REF) ==
[~2018-07-02] MED LIST changes: +GLUCOPHAGE500 MG/TAB PO; +INCRUSE EL62.5 MCG/A IH; +LASIX 40MG TABL40 MG PO; +LEVEMIR100 U/ML SQ; +MUCUS RELIEF400 M1 PO; +PROBIOTIC GOLD1 EACH PO; +PROCTOCORT1% TOP; +SINGULAIR 110 MG/TAB PO; -SINGULAIR10 MG PO; +THERAGRAN TAB1 UDTAB PO; +VISINE TEARS 0.30 ML OP; +XALATAN EYE DROPS OP; +ZOFRAN 4MG T4 MG/TAB PO; +calcium carb/vit d3
== END ==
LOC: ZLAB.WCH 17:28
DX: Z01.89 Encounter for other specified special examinations (principal)

== ENCOUNTER → 2018-07-03 | Outpatient (REF) ==
[~2018-07-03] MED LIST changes: +GLUCOPHAGE500 MG/TAB PO; +INCRUSE EL62.5 MCG/A IH; +LASIX 40MG TABL40 MG PO; +LEVEMIR100 U/ML SQ; +MUCUS RELIEF400 M1 PO; +PROBIOTIC GOLD1 EACH PO; +PROCTOCORT1% TOP; +THERAGRAN TAB1 UDTAB PO; +VISINE TEARS 0.30 ML OP; +XALATAN EYE DROPS OP; +ZOFRAN 4MG T4 MG/TAB PO; +calcium carb/vit d3
== END ==
LOC: ZLAB.WCH 09:21
DX: Z12.31 Encounter for screening mammogram for malignant neoplasm of breast (principal)

== ENCOUNTER → 2018-08-29 | Outpatient (REF) ==
[~2018-08-29] MED LIST changes: +ERYTHROCIN STE500 MG PO; +MELAT3MGTAB PO; +NOVOLOG 100U100 U/M1 SQ; +PRINIVIL20 MG PO
== END ==
LOC: ZLAB.WCH 09:35
DX: Z01.89 Encounter for other specified special examinations (principal)

== ENCOUNTER 2018-09-10 13:59 | Outpatient (CLI) | payer MEDICARE, OTHER ==
[2018-09-10 14:36] VITALS: BP 94/44; PULSE 81; TEMP 98.4
[2018-09-10] MEDS ORDERED: CIPRO 250MG TA250 MG PO (15:11)
--- NOTE | 2018-09-10 15:45 | NUR ---
Pt transorted back to [facility] per 9 line transportation. Pt diana well.
[2018-09-10] MEDS ORDERED: LYRICA 50MG CAP50 MG PO (16:34)
[2018-09-10] MEDS ORDERED: LASIX 20MG TABL20 MG PO (16:37)
[2018-09-10] MEDS ORDERED: COUMADIN 1MG1 MG/TAB PO (16:41)
== END 2018-09-10 16:43 | disposition home or self-care (01) ==
LOC: EUO 13:59
DX: Z45.2 Encounter for adjustment and management of vascular access device (principal); M86.8X7 Other osteomyelitis, ankle and foot; R91.1 Solitary pulmonary nodule; J44.9 Chronic obstructive pulmonary disease, unspecified
CPT/HCPCS: C1751

== ENCOUNTER 2018-09-11 17:30 | Inpatient (IN) | payer MEDICARE, OTHER ==
[~2018-09-11] VITALS: Ht 162.6 cm; Wt 71.8 kg
[~2018-09-11 17:30] MED LIST changes: +CIPRO 250MG TA250 MG PO; +COUMADIN 1MG1 MG/TAB PO
--- NOTE | 2018-09-11 17:38 | NUR ---
PT ARRIVED TO FLOOR VIA EMS WITH REPORT FROM VIJAY WOLFE. BLOOD RUNNING @ 75 MLS HR ON ARRIVAL, INCREASED TO 150 MLS HR. 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 PT RECIEVED 1 UNIT OF BLOOD PRIOR TO TRANSFER. 2ND UNIT RUNNING AT THIS TIME STARTED AT [place],
[2018-09-11 17:45] VITALS: BP 140/66; PULSE 76; TEMP 98.1
[2018-09-11 17:46] VITALS: BP 140/66; PULSE 76; TEMP 98.1
--- NOTE | 2018-09-11 19:15 | NUR ---
REport to Elfego WONG.
[2018-09-11 19:22] VITALS: BP 150/86; PULSE 89; TEMP 97.8
--- NOTE | 2018-09-11 20:44 | NUR ---
Pt. laying in bed with at bedside. Pt. is A&Ox3 but is a bit forgetfull, assessment complete. PICC to rt. upperarm patent. Pt. reports pain at a 5 on pain scale. Will give pain meds per orders. Pt. denies further needs, call light within reach.
[2018-09-11 23:44] VITALS: BP 143/76; PULSE 70; TEMP 97.6
[2018-09-12 03:00] VITALS: BP 153/76; PULSE 87; TEMP 97.6
[2018-09-12 06:56] LABS: MEAN CELL VOLUME 83 fl (80.0-100.0); MEAN CORPUSCULAR HGB CONC 32 g/dl (33.0-37.0); MEAN PLATELET VOLUME 10.3 fl (7.4-10.4); PLATELET COUNT 185 K/mm3 (130-400); RED BLOOD COUNT 3.71 M/mm3 (4.10-5.30); REDCELL DISTRIBUTION WIDTH-CV 17.4 % (11.5-14.5)
[2018-09-12 07:04] LABS: HEMATOCRIT 30.9 % (37.0-47.0); HEMOGLOBIN 9.8 g/dl (12.5-16.0); MEAN CORPUSCULAR HEMOGLOBIN 26 pg (27.0-31.0)
[2018-09-12 07:05] LABS: ALBUMIN 3.3 gm/dL (3.5-5.0); BILIRUBIN,TOTAL 0.6 mg/dL (0.0-1.0); CALCIUM 8.3 mg/dL (8.4-10.2); CREATININE, serum 0.71 (0.52-1.25); POTASSIUM 3.4 mmol/L (3.4-5.0); TOTAL PROTEIN 6.3 gm/dL (6.4-8.2)
[2018-09-12 07:21] VITALS: BP 145/73; PULSE 71; TEMP 98.1
[2018-09-12 07:36] LABS: ANISOCYTOSIS 1+; BAND 12 % (0-10); HYPOCHROMIA 1+; LYMPHOCYTE 5 % (20.0-51.0); NEUTROPHILS 78 % (42.0-75.2); PLATELET ESTIMATE NORMAL (NORMAL); POLYCHROMASIA 1+
--- NOTE | 2018-09-12 07:45 | NUR ---
full assessment completed, see interventions for further info, assisted up to bedside commode
--- NOTE | 2018-09-12 08:15 | NUR ---
assisted back to bed, had bowel movement while up, is reviewing menu and will order breakfast soon
[2018-09-12 08:23] LABS: INR 1.1 (0.8-3.0); PROTHROMBIN TIME 12.5 SECONDS (9.7-12.8)
--- NOTE | 2018-09-12 09:15 | NUR ---
Dr Logan and care team in to see patient,
--- NOTE | 2018-09-12 09:30 | NUR ---
sitting up in bed eating breakfast, at bedside, Dr Logan and care team in to see patient
--- NOTE | 2018-09-12 09:40 | NUR ---
spoke with EBENEZER Summers regarding consult
--- NOTE | 2018-09-12 10:00 | NUR ---
patient admitted with PICC. PICC intact right upper arm. With sterile technique right upper arm PICC dressing change done with insertion site cleansed with ChloraPrep 1, chlorhexidine impregnated disc applied, skin prep, StatLock, and Tegaderm applied. No signs or symptoms of IV complications noted. No concerns voiced.
--- NOTE | 2018-09-12 11:11 | NUR ---
Initial visit; Patient thanked Dry Room Attendant for looking in on her and offering God's blessings.
--- NOTE | 2018-09-12 12:00 | NUR ---
resting in bed, ready to order lunch, informed of the culture and the need for isolation
[2018-09-12 12:06] VITALS: BP 151/77; PULSE 77; TEMP 95.8
--- NOTE | 2018-09-12 12:45 | NUR ---
assisted up to bedside commode and voids qs, then back into bed, dressing to right foot came off while getting up, area at place of great toe is red and weepy looking, covered with telfa and suresh to hold in place, has ordered lunch
--- NOTE | 2018-09-12 13:19 | NUR ---
RAFAEL met with the patient to discuss discharge plan. The patient has been at [facility]. She states that she has been in and out of hospitals since May. Before, May, she had been living in [place] with her , Peter, and son, Enoc. She reports needing assistance ADLs and has a cane, walker, rolaider, and transport chair. The patient's PCP is Dr. Amadou Delaney and she utilizes the [facility]. She repots no difficulties obtaining her meds. The patient does not have advanced directives in EMR, but she states that she does have them completed and at home. She states her is her DPOA-HC and that he can bring a copy up to the hospital. The patient states that she would like to return back to [facility] upon discharge. RAFAEL presented and explained the patient choice form. The patient preferred 1) [facility] 2) [facility]. RAFAEL contacted Aaliyah at [facility]. Aaliyah reports that they should not have any problems accepting her back. RAFAEL attempted to contact Melissa at [facility]. RAFAEL left a voicemail. SW to continue to follow.
--- NOTE | 2018-09-12 13:44 | NUR ---
EARL Pickard in to help her with hygiene
--- NOTE | 2018-09-12 14:40 | NUR ---
c/o pain to right foot and medicated with rylenol 650mg po
[2018-09-12 16:43] VITALS: BP 134/61; PULSE 71; TEMP 97.8
--- NOTE | 2018-09-12 19:03 | NUR ---
bedside shift report given to MARVIN Crystal, c/o pain and medicated with roxicodone 5mg po
--- NOTE | 2018-09-12 19:05 | NUR ---
Pt resting with HOB elevated. No distress noted. Pt was previously given Roxicodone by Mikaela WONG for R foot pain. Pt just had Vanc trough drawn. Waiting results from lab to start Vancomycin IV. R foot wrapped in guaze dressing. No drainage noted. R UA PICC line- hard to flush. Respirations even and unlabored. Lungs clear to auscultation. BS+. No needs ntoed. Will continue to monitor.
[2018-09-12 19:36] VITALS: BP 142/91; PULSE 94; TEMP 98
--- NOTE | 2018-09-12 20:00 | NUR ---
Call received from pharmacy. Vanc trough resutls are appropraite. No change in Vancomycin dosing.
[2018-09-12 23:23] VITALS: BP 143/73; PULSE 108; TEMP 97.3
--- NOTE | 2018-09-13 | NUR ---
Pt reports pain in R foot, but requests to wait for pain medication. will continue to monitor.
[2018-09-13 03:24] VITALS: BP 149/80; PULSE 115; TEMP 98.2
--- NOTE | 2018-09-13 06:30 | NUR ---
Pt resting this AM with HOB elevated. Pt c/o difficulty with pain after seeing the ortho provider because she "poked and proded" her foot. R foot dressing reinforced. No drainage noted. No needs noted at this time.
[2018-09-13 09:02] LABS: HEMOGLOBIN 10.6 g/dl (12.5-16.0); MEAN CELL VOLUME 86 fl (80.0-100.0); MEAN CORPUSCULAR HEMOGLOBIN 26 pg (27.0-31.0); MEAN CORPUSCULAR HGB CONC 31 g/dl (33.0-37.0); MEAN PLATELET VOLUME 11.5 fl (7.4-10.4); PLATELET COUNT 206 K/mm3 (130-400); RED BLOOD COUNT 4.03 M/mm3 (4.10-5.30); REDCELL DISTRIBUTION WIDTH-CV 17.5 % (11.5-14.5)
[2018-09-13 09:26] LABS: HEMATOCRIT 34.5 % (37.0-47.0)
[2018-09-13 09:43] VITALS: BP 157/78; PULSE 104; TEMP 97.6
[2018-09-13 10:07] LABS: BAND 7 % (0-10); EOSINOPHIL 2 % (0-4); LYMPHOCYTE 9 % (20.0-51.0); NEUTROPHILS 76 % (42.0-75.2)
--- NOTE | 2018-09-13 10:13 | NUR ---
Patient resting in bed with spouse at bedside. Patient has been up to the bedside commde x2 this am, complaints of loose stools. Patient assisted with pericare. Dyspnea noted, wheezing noted. Vss on O2. Patient rating her pain high, but denies the need for pain medication. Patient tolerated diet this am, but reports minimal appetite. Ortho rounded on patient. Right foot dressed. Skin tear to Rfa re dressed. Iv antibioitcs to Picc in Rue. will monitor. .
[2018-09-13 12:00] VITALS: BP 153/71; PULSE 99; TEMP 97.1
[2018-09-13 16:40] VITALS: BP 136/68; PULSE 73; TEMP 98.1
--- NOTE | 2018-09-13 17:28 | NUR ---
Patient sitting up in chair. Visiting her . Eating dinner. Denies the need for pain medication. Picc to MALCOLM Amado. Right foot drg remains intact. Patient moves better with walker. She continues to use commode as needed. Assisted with pericare. Will monitor.
[2018-09-13 17:52] VITALS: BP 153/79; PULSE 96
--- NOTE | 2018-09-13 18:51 | NUR ---
Patient reports persistant chest pain. Sil notifed. Orders obtained, lab & pharmacy tech customer service notified. Meds given per orders. Patietn back to bed. Vss. Will report off to night nurse.
[2018-09-13 20:00] VITALS: BP 159/74; PULSE 83; TEMP 98.1; TEMP 98.7
[2018-09-14] VITALS (7 sets, daily range): BP systolic 106–156; BP diastolic 40–90; PULSE 77–99; TEMP 97.5–98.3
--- NOTE | 2018-09-14 05:14 | NUR ---
PT IN BED. NO c/o N/V. PT STILL HAS SOME CHEST DISCOMFORT WHEN AWAKE. PT ADMIN. OXYCODONE THIS MORNING. FENTANYL DID NOT SEEM TO HELP HER PAIN MUCH. PT DID REST AFTER GETTING ATIVAN LAST NIGHT.
[2018-09-14 09:11] LABS: CREATININE, serum 0.55 (0.52-1.25)
--- NOTE | 2018-09-14 09:20 | NUR ---
Patient sitting up at edge of bed. Patient seems medicated this am. A little out of sorts. rounded, orders obtained. Ekg being completed. Patient was up to bedside commode, voided & had stool, assisted with pericare. Patient breakfast ordered, she took all am meds with applesauce. She continues to report chest pain, aware. Picc to RUE. IV antibioitcs as ordered. continues to refuse Scds. Will closely monitor.
--- NOTE | 2018-09-14 10:58 | NUR ---
CRITICAL LAB RESULTS CALLED TO DR. LOBO.
--- NOTE | 2018-09-14 11:14 | NUR ---
Patient assisted to bedside comode, she voided. Up brushing her teeth now. Her mind seems more clear at this time. Her at bedside.
--- NOTE | 2018-09-14 12:31 | NUR ---
Patient up to bedside commode. Lunch ordered, insulin per orders. Tylenol for pain per request.
--- NOTE | 2018-09-14 14:53 | NUR ---
Patient sleeping, her spouse at bedside. rounded. Patient continues to call for assistance using beside commode as needed
--- NOTE | 2018-09-14 18:04 | NUR ---
Patient resting in bed, dinner ordered. Insulin not required. Iv lasix working, paient voiding using commode. Picc to Oliva.
[2018-09-15 03:40] VITALS: BP 139/78; PULSE 90; TEMP 98.1
[2018-09-15 07:51] VITALS: BP 150/67; PULSE 87; TEMP 97.9
--- NOTE | 2018-09-15 08:30 | NUR ---
Patient sitting up at edge of bed. Spouse at bedside. Alert and oriented x 3. Shift assessment complete. Dressing to Right foot is CDI. Coban and gauze dressing to right forarm is CDI. Patient states it is from skin tear. PICC line to QI without complications. Patient on contact precautions. Takes pills whole in applesauce. Denies further needs at this time.
--- NOTE | 2018-09-15 09:15 | NUR ---
Notified, Marlen PEREZ of critical potassium. New order for potassium protocol entered.
[2018-09-15 09:27] LABS: BASO % 0.2 % (0.0-2.0); EOS # 0.3 (0.0-0.7); EOS % 2.9 % (0-4.0); GRAN # 8.1 (1.4-6.5); GRAN % 77.8 % (42.2-75.2); MEAN CELL VOLUME 84 fl (80.0-100.0); MEAN CORPUSCULAR HEMOGLOBIN 26 pg (27.0-31.0); MEAN CORPUSCULAR HGB CONC 31 g/dl (33.0-37.0); MEAN PLATELET VOLUME 10.7 fl (7.4-10.4); MONO # 0.9 (0.1-0.6); MONO % 8.1 % (1.7-9.3); PLATELET COUNT 177 K/mm3 (130-400); REDCELL DISTRIBUTION WIDTH-CV 17.4 % (11.5-14.5)
[2018-09-15 09:32] LABS: CREATININE, serum 0.71 (0.52-1.25)
[2018-09-15 09:56] LABS: POTASSIUM 2.9 mmol/L (3.4-5.0)
[2018-09-15 12:32] VITALS: BP 152/67; PULSE 92; TEMP 97.6
--- NOTE | 2018-09-15 16:00 | NUR ---
RAFAEL updated Aaliyah at [facility]. RAFAEL contacted and faxed updates to Melissa at [facility]. SW to continue to follow.
[2018-09-15 16:55] VITALS: BP 155/83; PULSE 82; TEMP 97.8
--- NOTE | 2018-09-15 19:04 | NUR ---
Patient has done well throughout the day. Has been up multiple times to bedside comode with 1 assist and walker. Steady gait. Has requested pain medications this afternoon, given per orders. Dressing to right foot and right forarm changed due to drainage. Denies further needs at this time. Reported off to shift mechanic.
[2018-09-15 21:24] VITALS: BP 119/64; PULSE 98; TEMP 98
[2018-09-15 23:23] VITALS: BP 117/77; PULSE 93; TEMP 97.9
[2018-09-16 03:24] VITALS: BP 145/82; PULSE 80; TEMP 97.7
--- NOTE | 2018-09-16 06:22 | NUR ---
Patient rested well overnight. 1x assist to bedside commode. Administered PRN pain medication per orders. Patient denies further needs, call light within reach.
[2018-09-16 07:12] LABS: BASO % 0.1 % (0.0-2.0); EOS # 0.3 (0.0-0.7); EOS % 3.4 % (0-4.0); GRAN # 7.1 (1.4-6.5); GRAN % 77.9 % (42.2-75.2); LYMPH # 0.8 (1.2-3.4); LYMPH % 8.4 % (20.0-51.0); MEAN CELL VOLUME 84 fl (80.0-100.0); MEAN CORPUSCULAR HGB CONC 31 g/dl (33.0-37.0); MEAN PLATELET VOLUME 10.8 fl (7.4-10.4); MONO # 0.9 (0.1-0.6); MONO % 9.4 % (1.7-9.3); PLATELET COUNT 199 K/mm3 (130-400); RED BLOOD COUNT 3.63 M/mm3 (4.10-5.30); REDCELL DISTRIBUTION WIDTH-CV 17.2 % (11.5-14.5)
[2018-09-16 07:21] LABS: CALCIUM 8.2 mg/dL (8.4-10.2); CREATININE, serum 0.69 (0.52-1.25); MAGNESIUM 2.1 mg/dL (1.6-2.3); POTASSIUM 3.8 mmol/L (3.4-5.0)
[2018-09-16 07:23] LABS: HEMATOCRIT 30.5 % (37.0-47.0); HEMOGLOBIN 9.4 g/dl (12.5-16.0); MEAN CORPUSCULAR HEMOGLOBIN 26 pg (27.0-31.0)
[2018-09-16 09:08] VITALS: BP 147/71; PULSE 80; TEMP 97.3
[2018-09-16] MEDS ORDERED: PACERONE400 MG PO (09:16)
[2018-09-16] MEDS ORDERED: LEVEMIR FLEX100 U/ML SQ (09:18)
[2018-09-16] MEDS ORDERED: BD POSIFLUSH SF10 ML IV (09:20)
[2018-09-16] MEDS ORDERED: ROXICODONE 55 MG/TAB PO (09:22)
[2018-09-16] MEDS ORDERED: VANCOMYCIN HYD750 MG IV (09:24)
--- NOTE | 2018-09-16 11:00 | NUR ---
Patient is hoping to discharge to [facility] today but has not been accepted yet. She has been having nausea this morning. She is worried it is from the potassium she got yesterday. Explained it could be from the illness or antibiotics. Discussed marjorie goodman, she wanted to wait. No other changes at this time. Call light within reach.
[2018-09-16 11:52] VITALS: BP 131/54; PULSE 79; TEMP 97.9
--- NOTE | 2018-09-16 13:53 | NUR ---
Aleksander, at [facility], reports that they are unable to accept the patient. Aaliyah, at [facility], reports that they do not feel like they can provide the type of care the patient needs at this time. SW to inform the patient and patient's and will continue to follow.
--- NOTE | 2018-09-16 14:19 | NUR ---
SW met with the patient to update on referrals. The patient reports that she would really like to go to [facility], but was open to look at different SNF's. SW presented the patient with [email or web address]'s list of residential in the [facility]. The patient chose 1) [facility] 2) [facility]. SW contacted and faxed a referral to both facilities. SW awaiting their screenings.
--- NOTE | 2018-09-16 16:38 | NUR ---
Elin, at [facility], reports that are unable to accept the patient. Siddharth, at [facility], reports that they can accept the patient. SW to inform the patient and patient's and will continue to follow.
[2018-09-16 16:42] VITALS: BP 138/63; PULSE 88; TEMP 98.4
--- NOTE | 2018-09-16 18:30 | NUR ---
Patient has been doing well this afternoon. Nausea is better after getting zofran. Minimal complaints of pain. Tylenol given once today. She is hoping to discharge tomorrow but still waiting on placement. No other changes at this time. Call light within reach.
[2018-09-16 20:47] VITALS: BP 123/67; PULSE 106; TEMP 98.7
[2018-09-16 23:00] VITALS: BP 106/75; PULSE 99; TEMP 98.3
[2018-09-17 03:56] VITALS: BP 120/58; PULSE 86; TEMP 97.8
--- NOTE | 2018-09-17 05:49 | NUR ---
Patient rested well overnight. Patient had a bed bath this morning and foot was re dressed. Patient has only requested pain medicatioins once during the shift and currently denies further needs. Call light within reach.
[2018-09-17 07:57] VITALS: BP 126/65; PULSE 77; TEMP 98.5
--- NOTE | 2018-09-17 08:00 | NUR ---
Patient in bed resting. Alert and oriented x 3. Shift assessment complete. Dressing to right foot is CDI. Patient has skin tear to right forarm with gauze and coban.PICC line to QI without complications. Cyst to mccormick appears red. Denies pain at this time. Assisted patient to bedside comode. x1 assist with walker, steady gait. Denies further needs at this time.
[2018-09-17] MEDS ORDERED: PACERONE400 MG PO (08:55)
[2018-09-17] MEDS ORDERED: VANCOMYCIN HYD750 MG IV (08:59)
--- NOTE | 2018-09-17 10:19 | NUR ---
RAFAEL met with the patient and patient's to update on the referrals. The patient appeared upset about [facility] not being able to accept, but she reports she is agreeable to transferring to [facility]. The patient is to discharge today, 09/17, to [facility] for a skilled stay. Transportation was set for 1330, via [facility]. RAFAEL informed the patient, patient's , and nurse. They were all in agreeance. RAFAEL had presented and explained the IM form to the patient on 09/16. The patient verbalized understanding, signed, and she was provided a copy. No additional needs at this time.
[2018-09-17 11:20] VITALS: BP 127/49; PULSE 87; TEMP 97.9
[2018-09-17 12:51] VITALS: BP 127/49; PULSE 87; TEMP 97.9
--- NOTE | 2018-09-17 13:45 | NUR ---
Discharge instructions provided to patient. Patient educated on PICC line. Contacted [email or web address] for report. Patient denies pain or further needs at this time. Patient out by wheelchair with spouse.
[2018-09-17] MEDS ORDERED: LYRICA 50MG CAP50 MG PO (16:07)
== END 2018-09-17 14:45 | DRG 638 ==
LOC: SURG 17:30
PROVIDERS: Nurse Practitioner Family; Physician Assistant
PROC: 30233N1 Transfusion of Nonautologous Red Blood Cells into Peripheral Vein, Percutaneous Approach (ICD-10-PCS; principal; 2018-09-11)
DX: E11.628 Type 2 diabetes mellitus with other skin complications (principal); L03.115 Cellulitis of right lower limb; I50.32 Chronic diastolic (congestive) heart failure; E11.65 Type 2 diabetes mellitus with hyperglycemia; I48.91 Unspecified atrial fibrillation; J44.9 Chronic obstructive pulmonary disease, unspecified; E87.6 Hypokalemia; E83.42 Hypomagnesemia; E11.51 Type 2 diabetes mellitus with diabetic peripheral angiopathy without gangrene; D64.9 Anemia, unspecified; I25.10 Atherosclerotic heart disease of native coronary artery without angina pectoris; R07.89 Other chest pain; M70.41 Prepatellar bursitis, right knee; I70.201 Unspecified atherosclerosis of native arteries of extremities, right leg; E11.40 Type 2 diabetes mellitus with diabetic neuropathy, unspecified; Z89.411 Acquired absence of right great toe; Z95.5 Presence of coronary angioplasty implant and graft; Z79.4 Long term (current) use of insulin; Z87.891 Personal history of nicotine dependence; Z86.14 Personal history of Methicillin resistant Staphylococcus aureus infection; Z79.51 Long term (current) use of inhaled steroids
CPT/HCPCS: 99223-AI; 99231-AI; 99233-AI; 99239; J0744; J1815; J1940; J2060; J3010; J3370; J3475; J3480; J7050; P9016

== ENCOUNTER 2018-10-03 04:30 | Inpatient (IN) | payer MEDICARE, OTHER ==
[~2018-10-03] VITALS: Ht 167.6 cm; Wt 81.8 kg
[~2018-10-03 04:30] MED LIST changes: +BD POSIFLUSH SF10 ML IV; +LEVEMIR FLEX100 U/ML SQ; +PACERONE400 MG PO; +VANCOMYCIN HYD750 MG IV
[2018-10-03 05:03] LABS: HEMOGLOBIN 10.6 g/dl (12.5-16.0); MEAN CELL VOLUME 79 fl (80.0-100.0); MEAN CORPUSCULAR HEMOGLOBIN 25 pg (27.0-31.0); MEAN CORPUSCULAR HGB CONC 32 g/dl (33.0-37.0); MEAN PLATELET VOLUME 9.7 fl (7.4-10.4); PLATELET COUNT 400 K/mm3 (130-400); RED BLOOD COUNT 4.21 M/mm3 (4.10-5.30); REDCELL DISTRIBUTION WIDTH-CV 17.5 % (11.5-14.5)
[2018-10-03 05:08] LABS: HEMATOCRIT 33.1 % (37.0-47.0)
[2018-10-03 05:14] LABS: ALANINE AMINOTRANSFERASE 14 U/L (9-52); ALBUMIN 3.6 gm/dL (3.5-5.0); ALKALINE PHOSPHATASE 71 U/L (50-136); ANION GAP 18 mmol/L (7-16); AST,SGOT 26 U/L (15-37); BILIRUBIN,TOTAL 0.4 mg/dL (0.0-1.0); BLOOD UREA NITROGEN 53 mg/dL (7-17); CALCIUM 8.8 mg/dL (8.4-10.2); CARBON DIOXIDE 26 mmol/L (22-30); CHLORIDE 91 mmol/L (98-107); CREATININE, serum 3.44 (0.52-1.25); GLUCOSE 102 mg/dL (74-106); POTASSIUM 3.3 mmol/L (3.4-5.0); SODIUM 135 mmol/L (137-145); TOTAL PROTEIN 7.1 gm/dL (6.4-8.2)
[2018-10-03 05:30] LABS: INR 1.1 (0.8-3.0); PROTHROMBIN TIME 12.7 SECONDS (9.7-12.8); TROPONIN-I < 0.012 ng/mL (0.000-0.035)
[2018-10-03 05:44] LABS: ANISOCYTOSIS 1+; BAND 15 % (0-10); EOSINOPHIL 5 % (0-4); HYPOCHROMIA 1+; LYMPHOCYTE 21 % (20.0-51.0); METAMYELOCYTE 1 % (0-0); MICROCYTOSIS 1+; NEUTROPHILS 47 % (42.0-75.2); PLATELET ESTIMATE INCREASED (NORMAL)
[2018-10-03 05:48] LABS: OVALOCYTES 1+; SPHEROCYTE 1+
[2018-10-03] MEDS ORDERED: CYMBALTA 20MG20 MG PO (07:27)
[2018-10-03] MEDS ORDERED: PLAVIX 75MG TAB75 MG PO (07:38)
[2018-10-03 07:40] LABS: ARTERIAL BLD GAS TCO2 CT 25.5; ARTERIAL BLOOD GAS BASE EXCESS -0.8 (-2-2); ARTERIAL BLOOD GAS HCO3 24.2 meq/L (22-26); ARTERIAL BLOOD GAS PCO2 41.3 mmHg (35-45); ARTERIAL BLOOD GAS pH 7.39 (7.35-7.45)
--- NOTE | 2018-10-03 08:45 | NUR ---
patient in the emergency department. PICC intact right upper arm. No chlorhexidine impregnated disc noted at site. With sterile technique right upper arm PICC dressing change done with insertion site cleansed with ChloraPrep 1, chlorhexidine impregnated disc applied, skin prep, StatLock, and Tegaderm applied. No signs or symptoms of IV complications noted. Patient unable to address any concerns. Spastic movements of right arm noted. Arm wrapped with Surya to protect catheter. Caps changed and both lumens flushed with 10 mL normal saline with good blood return noted.
--- NOTE | 2018-10-03 10:30 | NUR ---
PT ADMITTED TO FLOOR AT THIS TIME. TRANSFERED TO BED FROM ED COT WITH STAFF ASSIST WITH SLIDE BOARD. PT WAS UNCOMFROTABLE AND GASPING FOR AIR INITIALLY UPON TRANSFER, AFTER REPOSITIONED AND MADE COMFORTABLE PT WAS RESTING PEACFULLY. NO GASPING FOR AIR.
--- NOTE | 2018-10-03 13:20 | NUR ---
Initial visit; Nurse called and requested visit for family who learned that Anthonys health is declining. Quality Analyst offered Spiritual Care offering prayer and discussing grief and 'knowing' that your loved one will always be with you, even through when we are Christians.
--- NOTE | 2018-10-03 16:39 | NUR ---
RAFAEL met with the patient's , Peter, to discuss discharge plan. The patient has been residing at [facility] for a skilled stay. The patient became unresponsive at [facility]. It is suspected that the patient had a stroke. The patient's decided to pursue comfort measures in the ED. RAFAEL followed up with the patient's and provided support. RAFAEL discussed hospice at [facility], hospice in the home, and [facility]. The patient's chose [facility]. RAFAEL updated Isabel at [facility]. RAFAEL contacted and faxed a referral to [facility]. Denys reports that they will need to see if the patient's PCP, Dr. Amadou Delaney, will follow the patient; but that they should be good to accept the patient tomorrow, 10/04. RAFAEL informed the patient's and the hospitalist. If the patient is stable to transfer, the plan is for the patient to discharge to [facility] tomorrow at 1100. RAFAEL will need to set up transportation through EMS and fax the patient's medications scripts to [facility]. RAFAEL to continue to follow to ensure a safe discharge. RAFAEL also received the patient's DPOA-HC, via fax, from the patient's PCP's office. RAFAEL placed in the patient's chart.
--- NOTE | 2018-10-03 19:00 | NUR ---
PT HAS BEEN RESTING COMFORTABLY THIS SHIFT. NO SIGNS OF AIR HUNGER OR AGITATION. UPON SHIFT CHANGE PT DID HAVE MORE NOTED AIR HUNGER, REPOSITIONED PT. DOOR TENDER NURSE STATED THAT SHE WAS GOING TO BE IN TO SEE PATIENT RIGHT AFTER REPORT TO GIVE SOME ROXANAL. HAS BEEN IN AND OUT VISIT , PRETTY UPSET ABOUT PT STATUS. PER REQUEST TO CONTACT XIOMY, XIOMY WAS IN TO SEE PT THIS AFTERNOON. NO ISSUES OR CONSERNS VOICED FROM THIS SHIFT.
--- NOTE | 2018-10-04 01:36 | NUR ---
Patient appeared to be having air hunger. PRN Ativan given.
--- NOTE | 2018-10-04 03:17 | NUR ---
PRN dose of morphine given for increased air hunger. After no improvement, remaining dose of ativan given.
--- NOTE | 2018-10-04 04:15 | NUR ---
Patient work of breathing and air hunger continues. Spoke with Sil PEREZ. Order for Ent suctioning given. Notified respiratory.
--- NOTE | 2018-10-04 04:39 | NUR ---
Patient resting more comfortable after suctioning complete. Will continue to monitor.
--- NOTE | 2018-10-04 04:41 | NUR ---
PT COMFORT CARE. NO HR OR SAT OBTAINED NT SUCTIONED FOR COMFORT. R NARE. NO ADVERSE EFFECT NOTED AT THIS TIME
--- NOTE | 2018-10-04 06:10 | NUR ---
Patient had increased air hunger throughout night. Ativan and morphine given. Nasopharyngeal suctioning performed.
--- NOTE | 2018-10-04 07:00 | NUR ---
Report received from MARVIN Duncan. pT in bed resting on R side, sleeping soundly, will continue to monitor.
--- NOTE | 2018-10-04 07:21 | NUR ---
Report given to Hugo Spencer
--- NOTE | 2018-10-04 09:34 | NUR ---
The patient is to discharge today, 8-10 to the [facility] Room 4. RAFAEL contacted [facility] and they can transport the pt at 1100. RAFAEL contacted Miguelangel from [facility] and informed him of the 1100 transport time and he was in agreeance. RAFAEL also informed the hospitalist, Advertising Analyst, pt's and the pt's nurse and all were in agreeance. SW to fax discharge orders to [facility] and scripts to [facility]. There are no additonal needs at this time.
[2018-10-04] MEDS ORDERED: DULCOLAX S10 MG/SUPP RC (10:02)
[2018-10-04] MEDS ORDERED: TRANSDERM-0.5 MG/21 TD (10:03)
[2018-10-04] MEDS ORDERED: ROXANOL 20MG20 MG/ML SL (10:05)
[2018-10-04] MEDS ORDERED: LORAINT PO (10:07)
[2018-10-04 10:14] VITALS: BP 159/87; PULSE 81; TEMP 96.6
--- NOTE | 2018-10-04 10:42 | NUR ---
Assessment charted, report called to [facility] nurse Jailene, who will be resuming care. Pt remains unresponsive, air hunger, provided PRN morphine to assist. , Peter at bedside, intermittently tearful but very supportive and anticipating move to [facility]. Per [facility], discharging with PICC. will prep for discharge. Will continue to monitor for discharge.
--- NOTE | 2018-10-04 10:59 | NUR ---
Peter, the patients was present. He was emotionally distraught so I spent time visiting with him and providing spiritual care. I prayed with him and Georgina prior to leaving and provided Peter with my phone number so he could contact me at anytime.
== END 2018-10-04 11:13 | disposition hospice, inpatient (51) | DRG 64 ==
LOC: COL.ER 04:30 → MEDICAL 09:46
PROVIDERS: Emergency Medicine; ADMIT Student in an Organized Health Care Education/Training Program
DX: I63.9 Cerebral infarction, unspecified (principal); J96.01 Acute respiratory failure with hypoxia; N17.9 Acute kidney failure, unspecified; I50.32 Chronic diastolic (congestive) heart failure; L03.115 Cellulitis of right lower limb; G81.11 Spastic hemiplegia affecting right dominant side; G93.49 Other encephalopathy; Z51.5 Encounter for palliative care; Z66 Do not resuscitate; I11.0 Hypertensive heart disease with heart failure; E11.9 Type 2 diabetes mellitus without complications; Z79.4 Long term (current) use of insulin; E78.5 Hyperlipidemia, unspecified; I73.9 Peripheral vascular disease, unspecified; J44.9 Chronic obstructive pulmonary disease, unspecified; I48.91 Unspecified atrial fibrillation; K21.9 Gastro-esophageal reflux disease without esophagitis; Z87.891 Personal history of nicotine dependence; Z88.5 Allergy status to narcotic agent; Z88.0 Allergy status to penicillin; Z88.2 Allergy status to sulfonamides; Z88.1 Allergy status to other antibiotic agents; Z91.041 Radiographic dye allergy status; L03.031 Cellulitis of right toe
CPT/HCPCS: 99222-AI; 99238; J2060; J2270; J2310; J3010; J7030